=== PATIENT | female | born 1970 | race Caucasian/White ===

== ENCOUNTER → 2021-04-03 | Outpatient (CLI) | payer BC ==
[~2021-04-03] MED LIST: AMITRIPTYLINE H25 MG PO; AUGMENTIN 875-1 EACH PO; B COMPLEX1 EACH PO; BUSPAR 10MG10 MG PO; CALCIUM500 MG PO; DULOXETINE HCL30 MG PO; ELIQUIS 5 MG TAB5 MG PO; ENSURE LIQUID237 ML PO; FEOSOL325 MG PO; FLORASTOR250 MG PO; GABAPENTIN100 MG PO; K-DUR TAB 10 M10 MEQ PO; LEVOTHYROXINE100 MC2 PO; MAGNESIUM400 MG PO; MELATONIN1 MG PO; MELATONIN10 M2 PO; MUCUS RELIEF400 MG PO; OMNICEF 300 MG300 MG PO; PERCOCET 5/325 T1 EA PO; PREMARIN0.625 MG PO; PROZAC 10 MG CA10 MG PO; THERAPEUTIC-M1 EACH PO; TOPROL XL 25 MG25 MG PO; VISTARIL25 MG PO; VITAMIN B-1100 M1 PO; VITAMIN C 500500 MG PO; WARFARIN SODIUM1 MG PO; ZITHROMAX250 MG PO; [UNRECOGNIZED DRUG - REMARK]
== END ==
LOC: KOH-I 14:46
DX: R10.31 Right lower quadrant pain (principal)
CPT/HCPCS: 74176

== ENCOUNTER → 2022-03-26 | Outpatient (CLI) | payer BC | LOC: KOH-I 15:57 | DX: R05.1 Acute cough (principal); J98.11 Atelectasis | CPT/HCPCS: 71046 ==